=== PATIENT | male | born 1965 | race Caucasian/White ===

== ENCOUNTER 2019-01-19 07:00 | Day surgery (SDC) | payer OTHER ==
[~2019-01-19] VITALS: Ht 188 cm; Wt 122.5 kg
[~2019-01-19 07:00] MED LIST: AVAPRO300 MG; CELEBREX100 MG PO; CLEOCIN HCL300 MG; COZAAR100 MG; COZAAR100 MG PO; COZAAR50 MG; HYZAAR 50-12.1 UDTAB PO; KETO10TA2 PO; METHYLPRED4 MG/DOSE- PO; ORPH100T PO; TESSALON PERLE100 M1; VISTARIL25 MG PO
[2019-01-20] MEDS ORDERED: TRAMADOL HCL50 MG PO ×2 (15:25)
[2019-01-20] MEDS ORDERED: NEURONTIN300 MG PO ×2 (15:25)
[2019-01-20] MEDS ORDERED: TYLENOL EXTRA500 MG PO ×2 (15:25)
[2019-01-20] MEDS ORDERED: MIRALAX17 GM PO ×2 (15:25)
== END 2019-01-20 08:00 | disposition home or self-care (01) ==
LOC: CIR.AMB 07:00 → EDSTATUS 07:15 → SURH 07:15 → O/R 10:47 → SURH 10:47 → SURG 16:02 → O/R 16:02 → CIR.AMB 01-20 08:00 → O/R 01-20 16:35 → SURG 01-20 16:35
DX: K43.0 Incisional hernia with obstruction, without gangrene (principal); K42.0 Umbilical hernia with obstruction, without gangrene; I10 Essential (primary) hypertension; E66.8 Other obesity; M54.5 Low back pain

== ENCOUNTER 2019-01-24 09:48 | Emergency (ER) | payer OTHER ==
[~2019-01-24] VITALS: Ht 190.5 cm; Wt 127.0 kg
[~2019-01-24 09:48] MED LIST changes: +MIRALAX17 GM PO; +NEURONTIN300 MG PO; +TRAMADOL HCL50 MG PO; +TYLENOL EXTRA500 MG PO
== END 2019-01-24 17:18 | disposition home or self-care (01) ==
LOC: ER 09:48
DX: K59.09 Other constipation (principal)

== ENCOUNTER 2019-04-06 21:40 | Emergency (ER) | payer OTHER ==
[~2019-04-06] VITALS: Ht 188 cm; Wt 122.5 kg
[2019-04-06] MEDS ORDERED: MUPIROCIN15 GM TOP (23:52)
[2019-04-06] MEDS ORDERED: CLEOCIN HCL150 MG PO (23:52)
[2019-04-06] MEDS ORDERED: INTESTINEX680 M1 PO (23:52)
== END 2019-04-07 00:12 | disposition home or self-care (01) ==
LOC: ER 21:40
DX: L08.89 Other specified local infections of the skin and subcutaneous tissue (principal); L53.8 Other specified erythematous conditions; S81.821S Laceration with foreign body, right lower leg, sequela; W26.8XXS Contact with other sharp object(s), not elsewhere classified, sequela

== ENCOUNTER 2023-04-14 13:42 | Emergency (ER) | payer OTHER ==
[~2023-04-14] VITALS: Ht 190.5 cm; Wt 140.4 kg
[~2023-04-14 13:42] MED LIST changes: +CLEOCIN HCL150 MG PO; +INTESTINEX680 M1 PO; +MUPIROCIN15 GM TOP
[2023-04-14] MEDS ORDERED: AVAPRO75 MG (13:57)
[2023-04-14] MEDS ORDERED: IRBESARTAN-HCT1 EAC1 (13:58)
[2023-04-14] MEDS ORDERED: B-COMPLEX1 EACH (13:58)
== END 2023-04-14 16:14 | disposition home or self-care (01) ==
LOC: ER 13:42
PROVIDERS: General Practice
DX: R42 Dizziness and giddiness (principal); Z20.822 Contact with and (suspected) exposure to COVID-19; R60.9 Edema, unspecified

== ENCOUNTER 2023-07-12 08:52 | Emergency (ER) | payer OTHER ==
[~2023-07-12] VITALS: Ht 188 cm; Wt 134.7 kg
[~2023-07-12 08:52] MED LIST changes: +AVAPRO75 MG; +B-COMPLEX1 EACH; +IRBESARTAN-HCT1 EAC1
== END 2023-07-12 11:36 | disposition home or self-care (01) ==
LOC: ER 08:52
DX: M79.672 Pain in left foot (principal)

== ENCOUNTER 2024-10-04 16:46 | Emergency (ER) | payer OTHER ==
[~2024-10-04] VITALS: Ht 177.8 cm; Wt 108.9 kg
[2024-10-04] MEDS ORDERED: KETOROLAC TROMETHAMINE 60 MG VIAL IM STA (20:52)
[2024-10-04] MEDS ORDERED: KETOROLAC TROMETHAMINE 60 MG VIAL IM ONE (21:01)
[2024-10-04 21:09] LABS: HEMATOCRIT 42.8 % (39.0-48.0); HEMOGLOBIN 14.2 g/dL (13-16.00); MEAN CELL VOLUME 83.1 fL (80.0-100.00); MEAN CORPUSCULAR HEMOGLOBIN 27.6 pg (27.00-32.0); MEAN CORPUSCULAR HGB CONC 33.3 g/dl (32.0-36.0); PLATELET COUNT 268 K/uL (150-450); RED BLOOD COUNT 5.15 M/uL (4.00-6.00); RED CELL DISTRIBUTION WIDTH 13.9 % (11.5-14.5)
== END 2024-10-04 23:10 | disposition home or self-care (01) ==
LOC: ER 16:48
DX: J10.1 Influenza due to other identified influenza virus with other respiratory manifestations (principal)
CPT/HCPCS: 36415; 96372; 99282; J1885